=== PATIENT | female | born 2000 | race Two or more races ===

== ENCOUNTER 2021-08-30 10:12 | Emergency (ER) | payer BC, MEDICAID | END 2021-08-30 12:55 | disposition home or self-care (01) | LOC: JD.ED 10:12 | DX: R07.89 Other chest pain (principal); Z86.16 Personal history of COVID-19 | CPT/HCPCS: 36415; 71045; 71045-26; 80053; 84484; 85025; 85379; 93005; 93010; 99285; 99285-25 ==

== ENCOUNTER 2022-04-23 15:21 | Emergency (ER) | payer BC, MEDICAID ==
[2022-04-23] MEDS ORDERED: Polyethylene Glycol 3350 Powder 17 GM Packet PO ONE (19:18)
== END 2022-04-23 19:36 | disposition home or self-care (01) ==
LOC: JD.ED 15:21
DX: R10.32 Left lower quadrant pain (principal); Z86.16 Personal history of COVID-19
CPT/HCPCS: 36415; 74018; 80053; 81001; 85025; 86140; 99283; A9270